=== PATIENT | female | born 1950 | race Caucasian/White ===

== ENCOUNTER 2016-10-08 09:42 | Day surgery (SDC) | payer MEDICARE, BC ==
[2016-10-08] MEDS ORDERED: MIDAZOLAM HCL 2MG/2ML VIAL IV ONE (16:15)
[2016-10-08] MEDS ORDERED: LIDOCAINE 2% MDV (20MG/ML) 20ML VIAL IV ONE (16:15)
[2016-10-08] MEDS ORDERED: PROPOFOL 10 MG/ML VIAL IV ONE (16:15)
--- NOTE | 2016-10-15 11:30 | Operative Note ---
DATE OF SERVICE: 10/08/2016. DATE OF SURGERY: 10/08/2016. REFERRING PHYSICIAN: Bandar Reardon DO. SURGEON: Lalit Martin DO. OPERATION: COLONOSCOPY TO THE CECUM. INDICATION: History of adenomatous polyps in the past. Patient returns at this time for surveillance. PROCEDURE: Intravenous sedation was administered by the Department of Anesthesiology and included Diprivan titrated to effect. Following informed consent from this alert individual, including discussion of the risks and benefits of the procedure and opportunity for the patient to ask questions. Patient was in left lateral decubitus position. Digital rectal examination was performed. No abnormalities were detected. Following this, the Olympus MPR472 video colonoscope was inserted in the rectum without resistance. Rectal mucosa had a normal appearance with normal folds and distensibility. Colonoscope was advanced up through the bowel to the level of the cecum without much difficulty. Throughout the bowel, the mucosa appeared normal. Folds were normal. The bowel distensible. The cecum was defined by noting the appendiceal orifice and ileocecal valve. From the base of the cecum, colonoscope was then withdrawn back through the bowel, reexamining the mucosa upon withdrawal. Again the right colon and transverse colon were endoscopically normal. Descending colon and sigmoid colon likewise were free from changes. The endoscope was then drawn back into the rectum. Retroflexion accomplished following air insufflation revealed hypertrophied anal papilla. The endoscope was straightened and removed. The patient tolerated the procedure well and was returned to the recovery area in stable condition. IMPRESSION: Hypertrophied anal papilla. Otherwise unremarkable colonoscopy to the cecum. RECOMMENDATIONS: Patient was advised to have recheck colonoscopy in 5 years' time for history of adenoma polyps. She will otherwise follow up with her primary care physician, Dr. Reardon. As always, thank you for allowing me to participate in the care of your patient. CC: DO Lalit Ingram DO MTDD
== END 2016-10-08 12:32 | disposition home or self-care (01) ==
LOC: HOP 09:42
PROVIDERS: ATTEND Internal Medicine Gastroenterology
DX: Z09 Encounter for follow-up examination after completed treatment for conditions other than malignant neoplasm (principal); Z86.010 Personal history of colon polyps; I10 Essential (primary) hypertension; I48.0 Paroxysmal atrial fibrillation; Z79.01 Long term (current) use of anticoagulants; E11.9 Type 2 diabetes mellitus without complications; Z79.84 Long term (current) use of oral hypoglycemic drugs; E03.9 Hypothyroidism, unspecified
CPT/HCPCS: 00810; G0105